=== PATIENT | male | born 1975 | race Caucasian/White ===

== ENCOUNTER 2018-05-25 09:38 | Emergency (ER) | payer OTHER, SELFPAY ==
[2018-05-25 09:40] VITALS: BP 114/75; PULSE 71; RESP 17; TEMP 37; O2SAT 95; BMI 25.1
--- NOTE | 2018-05-25 09:59 | CT_ITS ---
STUDY: CT ABDOMEN AND PELVIS WITHOUT CONTRAST REASON FOR EXAM: Male, 42 years old. Right flank pain, history of kidney stones RADIATION DOSAGE (If Supplied By Facility): CTDIvol = ( 8.14 ) mGy, DLP = ( 410.99 ) mGycm TECHNIQUE: Transaxial images were obtained from the dome of the diaphragm to the symphysis pubis without oral contrast, and without intravenous contrast. Sagittal and coronal images were reconstructed. Individualized dose optimization techniques were used for this CT. COMPARISON: None. FINDINGS: There is a pleural-based 3 mm nodule of the left lower lobe image 14 of series 2. The visualized portions of the heart are within normal limits. Normal liver. Normal gallbladder and extrahepatic biliary system. Normal spleen. Normal pancreas. Normal bilateral adrenal glands. Normal right kidney. Normal left kidney. Normal visualized stomach. Normal small intestine. There is mild sigmoid diverticulosis with no evidence of associated diverticulitis. The appendix is visualized and appears normal. Normal abdominal aorta. Normal inferior vena cava. Normal retroperitoneum. Normal urinary bladder. There is a small umbilical hernia containing fat. Normal osseous structures. CT/Abdomen/Pelvis without Cont IMPRESSION: 1. Mild sigmoid diverticulosis with no evidence of associated diverticulitis. 2. Small fat-containing umbilical hernia. 3. There is no evidence of nephro or ureterolithiasis, hydronephrosis, or hydroureter. 4. Pleural-based 3 mm nodule of the left lower lobe. Appropriate follow-up using Fleischner Society criteria is recommended. 5. Is no evidence of free intra-abdominal or intrapelvic air, fluid, or inflammatory process. Electronically Signed: Trung Thorpe MD at 11:01 EDT , Service support ,
[2018-05-25 10:12] LABS: Bacteria 0 SEEN /hpf (None Seen); Mucous, Urine 0 SEEN /hpf (<or=2+); Red Blood Cells-Urine 0 SEEN /hpf (0-5); Squamous Epithelial Cells - UA 0 SEEN /hpf (0-5); White Blood Cells 0 SEEN /hpf (0-5)
[2018-05-25] MEDS: Ketorolac 30 MG/ML Syringe IV (10:12)
[2018-05-25] MEDS: 0.9% Normal Saline 1,000 ML 999 ML IV (10:12)
[2018-05-25] MEDS: Ondansetron 4 MG/2 ML Vial IV (10:12)
[2018-05-25 10:14] LABS: Color, Urine Yellow (Yellow); Glucose, Dipstick Normal (Normal); Ketone-Dipstick Negative (Negative); Leukocyte Esterase-Dipstick Negative /ul (Negative); Nitrite-Dipstick Negative (Negative); Occult Blood-Urine Negative /ul (Negative); Protein-Dipstick Negative (Negative); Urine Bilirubin Dipstick Negative (Negative); Urine Clarity Clear (Clear); Urine Urobilinogen Normal (Normal); Urine pH 6.5 (5.0 - 8.0)
[2018-05-25 10:26] LABS: Absolute Lymphocyte Count 1.68 X10^3/ul (0.83-4.51); Basophil# 0.02 X10^3/uL; Basophil% 0.5 % (0-1); Eosinophil# 0.22 X10^3/uL; Eosinophils% 5.2 % (0-5); Hematocrit 41.9 % (40-54); Hemoglobin 14.7 g/dl (13.0-16.5); Lymphocyte # 1.68 X10^3/ul (4.0); Lymphocyte % 39.7 % (19-41); Mean Corp Hgb Conc 35.1 g/gl (32-36); Mean Corpuscular Hgb 30.7 pg (27.0-32.0); Mean Corpuscular Volume 87.5 fL (80-94); Mean Platelet Vol. 9.7 fl (6.2-12.0); Monocyte# 0.31 X10^3/uL; Monocyte% 7.3 % (0-10); Neutrophil # 1.99 X10^3/uL (2.7-7.7); Neutrophil % 47.1 % (47-70); POSITIVE COUNT NO; POSITIVE DIFFERENTIAL NO; POSITIVE MORPHOLOGY NO; Platelet Count 215 K/mm3 (150-450); RBC Distribution Width CV 12.7 % (11.6-14.6); RBC Distribution Width SD 40.4 fl (35.1-43.9); Red Blood Count 4.79 M/mm3 (4.6-6.2); White Blood Count 4.2 K/mm3 (4.4-11.0)
[2018-05-25 10:35] LABS: Anion Gap 4 (5-15); BUN 10 mg/dL (7-18); BUN/Creat Ratio 13.3 RATIO (10-20); Calcium,Total 8.6 mg/dL (8.5-10.1); Chloride 107 mmol/L (98-107); Creatinine, Serum 0.75 mg/dL (0.70-1.30); EST Glomerular Filtration Rate 119 mL/min (>60); Est Glom Filt Rate - Afr Amer 144 mL/min (>60); Estimated Creatinine Clearance 129.78 ml/min; Glucose 91 mg/dL (74-106); Sodium Level 140 mmol/L (136-145)
--- NOTE | 2018-05-25 11:08 | US_ITS ---
STUDY: SCROTUM ULTRASOUND REASON FOR EXAM: Male, 42 years old. Intermittent right testicular pain. TECHNIQUE: Ultrasound evaluation of the scrotum was performed with color Doppler and static love-scale imaging. COMPARISON: None. FINDINGS: RIGHT TESTICLE INTRATESTICULAR: There is a normal size of the right testicle. The right testicle measures 4.8 x 3.0 x 2.2 cm. There is a homogenous echotexture. There is normal arterial and normal venous vascularity. There is no demonstrated right testicular mass or cyst. EXTRATESTICULAR: The epididymis is normal in size. The epididymis head measures 1.0 x 1.5 x 0.7 cm. There is normal vascularity of the epididymis. There is no demonstrated epididymal cystic structure. There is a 1.7 x 0.8 x 0.7 cm pocket of fluid in the scrotal sac that may be a small hydrocele. There is no demonstrated varicocele. There is no demonstrated extratesticular mass or cyst. LEFT TESTICLE INTRATESTICULAR: There is a normal size of the left testicle. The left testicle measures 5.2 x 3.3 x 2.4 cm. There is a homogenous echotexture. There is normal arterial and normal venous vascularity. There is no demonstrated left testicular mass or cyst. EXTRATESTICULAR: The epididymis is normal in size. The epididymis head measures 1.1 x 0.9 x 0.9 cm. There is normal vascularity of the epididymis. There is no demonstrated epididymal cystic structure. There is a 3.9 x 1.3 x 0.9 cm pocket of fluid in the scrotal sac, consistent with a small hydrocele. There is no demonstrated varicocele. There is no demonstrated extratesticular mass or cyst. US/Testicular with Arterial Flow IMPRESSION: 1. Normal bilateral testicles and epididymides. 2. Small left hydrocele and borderline hydrocele on the right. Electronically Signed: Nader Snell MD at 12:53 EDT , Service support ,
--- NOTE | 2018-05-25 12:58 | ED.VISSUMM ---
- ER Visit Summary Date of Service: 05/25/18 Chief Complaint: Abdominal pain History of Present Illness: The patient is a 42 M who presents with abdominal pain. Over the last 3 days he complains of right groin pain which radiates into the hip and into the right testicle. Currently his pain is only mild to minimal. However at its worst it is about 7 out of 10. He denies any vomiting or diarrhea. He does report some dysuria frequency urgency. He notes that his pain is colicky and waxing and waning. No fevers. He reports a remote history of kidney stones and was concerned he may be having another kidney stone. Physical Examination: Afebrile vitals are normal No distress resting comfortably Heart regular rate and rhythm Lungs are clear Abdomen soft nontender nondistended Genitourinary exam is normal no scrotal edema normal testicles no tenderness Test Results: CBC BMP urinalysis all normal. CT the flank shows mild sigmoid diverticulosis without evidence of diverticulitis no ureteral calculi there is an incidental 3 mm left lower lobe nodule. Scrotal ultrasound shows a small left hydrocele and a borderline right hydrocele. Emergency Department Course and Treatment: Initially patient was treated with IV fluids Toradol and Zofran. He is resting comfortably on reevaluation and states that his pain is currently resolved. CT was obtained which did not show a clear explanation of the patient's symptoms so we also checked a testicular ultrasound which is essentially normal as above. I do not have a clear explanation of the patient's symptoms. We will refer to urology. He understands to return for new or worsening symptoms and was struck on specific signs and symptoms to monitor for. Patient discharged. Treatment Plan: [] Disposition: Discharge Impression: Right groin pain Right testicular pain This note was generated with [employer] dictation software. It may contain incorrect words, spelling, and punctuation that were not noted in review of the chart prior to signing ED Disposition - Plan for ED Patient: Chief Complaint: Flank Pain Referrals: Meghann Reese MD [Primary Care Provider] -
--- NOTE | 2018-05-25 13:01 | ED.DEP ---
ED Disposition - Plan for ED Patient: Chief Complaint: Flank Pain Instructions: ED Testicular Pain [facility] Referrals: Meghann Reese MD [Primary Care Provider] - Luigi Mccarty MD [STAFF PHYSICIAN] -
[2018-05-25 13:10] VITALS: BP 120/85; PULSE 72; RESP 16; O2SAT 99
== END 2018-05-25 13:11 | disposition home or self-care (01) ==
LOC: ED 10:02
PROVIDERS: Emergency Provider Emergency Medicine; Family Provider Family Medicine; PCP Family Medicine
DX: R10.31 Right lower quadrant pain (principal); N50.811 Right testicular pain; K57.30 Diverticulosis of large intestine without perforation or abscess without bleeding; N43.3 Hydrocele, unspecified; Z87.442 Personal history of urinary calculi
CPT/HCPCS: 74176; 76870; 80048; 81001; 85025; 93976; 96361; 96374; 96375; 99284; J7030; J2405

== ENCOUNTER → 2021-07-07 18:06 | Outpatient (CLI) | payer OTHER, SELFPAY | PROVIDERS: PCP Family Medicine; Visit Provider Family Medicine | DX: R30.0 Dysuria (principal) | CPT/HCPCS: 87086 ==